=== PATIENT | male | born 1950 | race Caucasian/White ===

== ENCOUNTER 2020-04-14 06:23 | Day surgery (SDC) | payer MEDICARE, OTHER ==
[2020-04-14] MEDS ORDERED: fentaNYL 100 MCG/2 ML SDV ONE (07:22)
[2020-04-14] MEDS ORDERED: Midazolam 1 MG/ML 2 ML SDV ONE (07:22)
[2020-04-14] MEDS ORDERED: Propofol 200 MG/20 ML SDV ONE (07:22)
[2020-04-14] MEDS ORDERED: Dextrose 5%-Lactated Ringers 1,000 ML IV SCH (07:30)
[2020-04-14 09:25] VITALS: BP 135/70; PULSE 55
--- NOTE | 2020-04-21 13:20 | OR ---
DATE OF PROCEDURE: 04/14/2020 SURGEON: Ajay Miranda MD PREOPERATIVE DIAGNOSIS: Positive Cologuard examination. POSTOPERATIVE DIAGNOSIS: Colon polyps involving transverse colon and mid sigmoid colon. OPERATIVE PROCEDURE: Flexible colonoscopy with: 1. Polypectomy by snare technique x2. 2. Injection of Celine ink at the sigmoid colon polyp site. ANESTHESIA: IV sedation. INDICATION FOR PROCEDURE: This is a 69-year-old who presents with a positive Cologuard examination, thus undergoing colonoscopy with biopsies and/or polypectomy as indicated. Potential risks including bleeding and perforation were discussed, and the patient wishes to proceed. DETAILS OF PROCEDURE: The patient was taken to the operating room and placed in a left lateral decubitus position. IV sedation was administered after which the initial digital rectal exam was performed and was unremarkable. The colonoscope was then passed through the rectum with retroflexion revealing uncomplicated hemorrhoidal columns. The scope was eventually passed to the cecum. The prep was quite good. Only a small amount of liquid stool was present. No diverticula or areas of colitis were identified. There were 2 small polyps, one in the proximal transverse colon, one in the mid sigmoid colon. Both these were excised by means of cautery snare technique and separately sent for pathologic exam. Good hemostasis was noted at the polypectomy sites. To help facilitate identification of sigmoid colon location in the event of , 4 mL of Celine ink was injected into the submucosa of the colon adjacent to the sigmoid colon polypectomy site. At that point, no further problems were noted and the scope was withdrawn and the procedure then concluded. We will notify the patient regarding the pathology report, and the next colonoscopy should probably be somewhere in the range of 2 to 3 years assuming that one or both of these are adenomatous polyps. Ajay Miranda MD /[id number]
== END 2020-04-14 09:30 | disposition home or self-care (01) ==
LOC: JP.SDS 06:23
PROVIDERS: ATTEND Surgery
DX: D12.3 Benign neoplasm of transverse colon (principal); F41.9 Anxiety disorder, unspecified; I10 Essential (primary) hypertension; E78.5 Hyperlipidemia, unspecified
CPT/HCPCS: 45381; 45385; 88305; J2250; J2704; J3010; J7121